=== PATIENT | female | born 1950 | race Caucasian/White ===

== ENCOUNTER → 2016-12-06 21:39 | Emergency (ER) | payer MEDICARE ==
--- NOTE | 2016-12-06 22:34 | RAD ---
INDICATION: Head injury. COMPARISON: Comparison is made with a prior CT of the brain from September 20, 2014. TECHNIQUE: Contiguous axial sections of the brain were obtained from the skull base to the vertex without contrast. FINDINGS: The ventricles, cisterns and sulci are enlarged consistent with diffuse atrophy. There are small areas of decreased density in the subcortical and periventricular white matter suggestive of mild chronic small vessel ischemic changes. There is no evidence for hemorrhage. There is soft tissue swelling and hematoma in the scalp adjacent to the posterior right parietal bone measuring 4.6 x 2.0 cm in size. There is also a small amount of air within the soft tissues consistent with a laceration type injury. No fracture is seen. The visual is portion of the paranasal sinuses and mastoid air cells appear clear. IMPRESSION: 1. NO EVIDENCE FOR ACUTE INTRACRANIAL ABNORMALITY. 2. SOFT TISSUE SWELLING AND HEMATOMA IN THE SCALP ADJACENT TO THE POSTERIOR RIGHT PARIETAL BONE.
--- NOTE | 2016-12-06 22:40 | RAD ---
INDICATION: Fall, head injury. COMPARISON: There are no prior studies available for comparison. TECHNIQUE: Contiguous axial sections were obtained from the skull base through the C7 vertebra. Images were reconstructed in the sagittal and coronal planes. FINDINGS: There is straightening of the cervical spine with loss of the normal cervical lordosis. No prevertebral soft tissue swelling or fracture is seen. At the C2-C3 level there is mild posterior uncinate process spurring and moderate hypertrophic changes within the facet joints. No spinal canal narrowing is present. There is mild neural foraminal narrowing on the right side. At the C3-C4 level there is mild posterior uncinate process spurring and moderate hypertrophic changes within the facet joint on the left side. No spinal canal narrowing is present. There is mild neural foraminal narrowing on the left side. At the C4-C5 level there is mild posterior uncinate process spurring and mild hypertrophic changes within the facet joints. No significant spinal canal narrowing is present. There is mild to moderate bilateral neural foraminal narrowing. At the C5-C6 level there is mild to moderate posterior uncinate process spurring. This causes mild spinal canal narrowing. There is moderate bilateral neural foraminal narrowing. At the C6-C7 level there is mild to moderate posterior uncinate process spurring. This causes mild spinal canal narrowing. There is moderate bilateral neural foraminal narrowing. Images through the lung apices demonstrate a curvilinear nodular density at the right lung apex. Recommend a follow-up chest x-ray for further evaluation. IMPRESSION: 1. NO EVIDENCE FOR FRACTURE OR SUBLUXATION. 2. MODERATE CERVICAL SPONDYLOSIS. 3. ABNORMAL DENSITY AT THE RIGHT LUNG APEX. RECOMMEND A FOLLOW-UP PA AND LATERAL CHEST FILMS FOR FURTHER EVALUATION.
[2016-12-06 22:52] LABS: Hematocrit 35 % (35-47); Hemoglobin 10.7 g/dl (12.0-16.0); Mean Corpuscular HGB Conc 31 g/dl (31-36); Mean Corpuscular Hemoglobin 25 pg (27-31); Mean Corpuscular Volume 82 fL (80-97); Mean Platelet Volume 7 um3 (7.4-10.4); Red Blood Count 4.29 10^6/ul (4.0-5.4); Red Cell Distribution Width 17 % (10.5-15); White Blood Count 5.9 10^3/ul (3.5-10.8)
[2016-12-06 23:08] LABS: BUN/Creatinine Ratio 10.8 (8-20); Calcium 9.4 mg/dL (8.6-10.3); EGFR African American 117.3 (>60); EGFR Non-African American 91.2 (>60); Globulin 3.6 g/dL (2-4); Potassium 3.1 mmol/L (3.5-5.0); Total Bilirubin 0.2 mg/dL (0.2-1.0); Total Protein 7.6 g/dL (6.4-8.9)
[2016-12-06 23:12] VITALS: BP 118/86
--- NOTE | 2016-12-07 03:03 | ED ---
Joseph Meyer Alok, scribed for Reuben Silva MD on 12/06/16 at 2243 . Adult Trauma - HPI Summary HPI Summary: 66F presents to the ED with occipital head pain. Pt states that she fell down the steps while leaving her home. Pt describes episode as [id number] event falling down a total of 3 steps and states she was able to get up on her own. Pt presents with abrasion of the left foot. Pt denies LOC or neck pain. Pt denies hip pain. Pt denies CP or SOB. Pt denies fever or chills. Pt denies back pain, flank pain, or abd pain. Pt denies anti-coagulants. Pt denies ETOH use before fall though admitted to nursing staff of ETOH use today. Nursing staff notes confusion in pt. - History of Current Complaint Chief Complaint: EDHeadInjury Stated Complaint: FALL/HEAD INJURY Time Seen by Provider: 12/06/16 22:05 Hx Obtained From: Patient ?: No Mechanism of Injury: Fall Loss of Consciousness: no loss of consciousness Onset/Duration: Started Hours Ago, Traumatic, Still Present Onset of Pain: Immediate Onset Severity: Moderate Current Severity: Moderate Pain Intensity: 0 Pain Scale Used: 0-10 Numeric Location: Head Aggravating Factor(s): Nothing Alleviating Factor(s): Nothing Associated Signs & Symptoms: Positive: Other: - abrasion left foot. Negative: SOB, Chest Pain, Fever, Loss of Consciousness - Additional Pertinent History Primary Care Physician: [id number] - Allergy/Home Medications Allergies/Adverse Reactions: Allergies Allergy/AdvReac Type Severity Reaction Status Date / Time No Known Allergies Allergy Verified 08/21/16 13:05 PMH/Surg Hx/FS Hx/Imm Hx Endocrine/Hematology History: Denies: Hx Anticoagulant Therapy, Hx Diabetes, Hx Systemic Lupus Erythematosus Cardiovascular History: Denies: Hx Congestive Heart Failure, Hx Hypertension, Hx Pacemaker/ICD GI History: Reports: Hx Gastroesophageal Reflux Disease, Other GI Disorders - esophagitis History: Denies: Hx Dialysis, Hx Renal Disease Musculoskeletal History: Denies: Hx Rheumatoid Arthritis, Hx Osteoporosis Sensory History: Denies: Hx Hearing Aid Neurological History: Reports: Hx Dementia Psychiatric History: Denies: Hx Panic Disorder - Cancer History Hx Chemotherapy: No Hx Radiation Therapy: No - Surgical History Surgery Procedure, Year, and Place: APPENDIX Infectious Disease History: No Infectious Disease History: Denies: Traveled Outside the [place] in Last 30 Days - Family History Known Family History: Positive: Hypertension Negative: Cardiac Disease - Social History Occupation: Retired Alcohol Use: unable to say how many drinks tonight 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 No evidence of other trauma noted besides head. The skin is warm and dry and skin color reflects adequate perfusion. Good skin turgor. HEENT: No delaney parra or raccoon eyes. Hematoma right occipital area with some bleeding. The pupils are equal and reactive. The conjunctivae are clear and without drainage. Nares are patent and without drainage. Mouth reveals moist mucous membranes and the throat is without erythema and exudate. Neck is supple with full range of motion and non-tender. There are no carotid bruits. There is no neck vein distension. Respiratory: Chest is non-tender. Lungs are clear to auscultation and breath sounds are symmetrical and equal. Cardiovascular: Hear is regular rate and rhythm. There is no murmur or rub auscultated. There is no peripheral edema and pulses are symmetrical and equal. Abdomen: The abdomen is soft and non-tender. There are normal bowel sounds heard in all four quadrants and there is no organomegaly palpated. Musculoskeletal: There is no back pain noted. Extremities are non-tender with full range of motion. There is good capillary refill. There is no peripheral edema or calf tenderness elicited. Neurological: Patient is alert and oriented to person, place and time. The patient has symmetrical motor strength in all four extremities. Cranial nerves are grossly intact. Deep tendon reflexes are symmetrical and equal in all four extremities. Psychiatric: The patient has an appropriate affect and does not exhibit any anxiety or depression. Triage Information Reviewed: Yes Vital Signs On Initial Exam: Initial Vitals Temp Pulse Resp BP Pulse Ox 97.2 F 83 18 130/84 100 12/06/16 21:49 12/06/16 21:49 12/06/16 21:49 12/06/16 21:49 12/06/16 21:49 Vital Signs Reviewed: Yes - Rachana Coma Scale Coma Scale Total: 15 Diagnostics - Vital Signs Vital Signs Temp Pulse Resp BP Pulse Ox 12/06/16 21:49 97.2 F 83 18 130/84 100 - Laboratory Lab Results: Lab Results 12/06/16 12/06/16 12/06/16 Range/Units 22:43 22:43 22:43 WBC 5.9 (3.5-10.8) 10^3/ul RBC 4.29 (4.0-5.4) 10^6/ul Hgb 10.7 L (12.0-16.0) g/dl Hct 35 (35-47) % MCV 82 (80-97) fL MCH 25 L (27-31) pg MCHC 31 (31-36) g/dl RDW 17 H (10.5-15) % Plt Count 446 (150-450) 10^3/ul MPV 7 L (7.4-10.4) um3 Neut % (Auto) 47.4 (38-83) % Lymph % (Auto) 27.1 (25-47) % Evangeline % (Auto) 4.6 (1-9) % Eos % (Auto) 18.0 H (0-6) % Baso % (Auto) 2.9 H (0-2) % Absolute Neuts (auto) 2.8 (1.5-7.7) 10^3/ul Absolute Lymphs (auto) 1.6 (1.0-4.8) 10^3/ul Absolute Monos (auto) 0.3 (0-0.8) 10^3/ul Absolute Eos (auto) 1.1 H (0-0.6) 10^3/ul Absolute Basos (auto) 0.2 (0-0.2) 10^3/ul Absolute Nucleated RBC 0 10^3/ul Nucleated RBC % 0 INR (Anticoag Therapy) 0.92 (0.89-1.11) Sodium 140 (133-145) mmol/L Potassium 3.1 L (3.5-5.0) mmol/L Chloride 103 (101-111) mmol/L Carbon Dioxide 28 (22-32) mmol/L Anion Gap 9 (2-11) mmol/L BUN 7 (6-24) mg/dL Creatinine 0.65 (0.51-0.95) mg/dL Est GFR ( Amer) 117.3 (>60) Est GFR (Non-Af Amer) 91.2 (>60) BUN/Creatinine Ratio 10.8 (8-20) Glucose 100 (70-100) mg/dL Lactic Acid (0.5-2.0) mmol/L Calcium 9.4 (8.6-10.3) mg/dL Total Bilirubin 0.20 (0.2-1.0) mg/dL AST 25 (13-39) U/L ALT 11 (7-52) U/L Alkaline Phosphatase 101 (34-104) U/L Troponin I 0.00 (<0.04) ng/mL Total Protein 7.6 (6.4-8.9) g/dL Albumin 4.0 (3.2-5.2) g/dL Globulin 3.6 (2-4) g/dL Albumin/Globulin Ratio 1.1 (1-3) Serum Alcohol 286 H (<10) mg/dL 12/06/16 Range/Units 22:43 WBC (3.5-10.8) 10^3/ul RBC (4.0-5.4) 10^6/ul Hgb (12.0-16.0) g/dl Hct (35-47) % MCV (80-97) fL MCH (27-31) pg MCHC (31-36) g/dl RDW (10.5-15) % Plt Count (150-450) 10^3/ul MPV (7.4-10.4) um3 Neut % (Auto) (38-83) % Lymph % (Auto) (25-47) % Evangeline % (Auto) (1-9) % Eos % (Auto) (0-6) % Baso % (Auto) (0-2) % Absolute Neuts (auto) (1.5-7.7) 10^3/ul Absolute Lymphs (auto) (1.0-4.8) 10^3/ul Absolute Monos (auto) (0-0.8) 10^3/ul Absolute Eos (auto) (0-0.6) 10^3/ul Absolute Basos (auto) (0-0.2) 10^3/ul Absolute Nucleated RBC 10^3/ul Nucleated RBC % INR (Anticoag Therapy) (0.89-1.11) Sodium (133-145) mmol/L Potassium (3.5-5.0) mmol/L Chloride (101-111) mmol/L Carbon Dioxide (22-32) mmol/L Anion Gap (2-11) mmol/L BUN (6-24) mg/dL Creatinine (0.51-0.95) mg/dL Est GFR ( Amer) (>60) Est GFR (Non-Af Amer) (>60) BUN/Creatinine Ratio (8-20) Glucose (70-100) mg/dL Lactic Acid 1.5 (0.5-2.0) mmol/L Calcium (8.6-10.3) mg/dL Total Bilirubin (0.2-1.0) mg/dL AST (13-39) U/L ALT (7-52) U/L Alkaline Phosphatase (34-104) U/L Troponin I (<0.04) ng/mL Total Protein (6.4-8.9) g/dL Albumin (3.2-5.2) g/dL Globulin (2-4) g/dL Albumin/Globulin Ratio (1-3) Serum Alcohol (<10) mg/dL Result Diagrams: 12/06/16 22:43 12/06/16 22:43 Lab Statement: Any lab studies that have been ordered have been reviewed, and results considered in the medical decision making process. - CT Brain CT CT Interpretation: Positive (See Comments) - IMPRESSION: 1. NO EVIDENCE FOR ACUTE INTRACRANIAL ABNORMALITY. 2. SOFT TISSUE SWELLING AND HEMATOMA IN THE SCALP ADJACENT TO THE POSTERIOR RIGHT PARIETAL BONE. CT Interpretation Completed By: Radiologist Cervical Spine CT CT Interpretation: Positive (See Comments) - IMPRESSION: 1. NO EVIDENCE FOR FRACTURE OR SUBLUXATION. 2. MODERATE CERVICAL SPONDYLOSIS. 3. ABNORMAL DENSITY AT THE RIGHT LUNG APEX. RECOMMEND A FOLLOW-UP PA AND LATERAL CHEST FILMS FOR FURTHER EVALUATION. CT Interpretation Completed By: Radiologist - EKG 2640 Cardiac Rate: Other Rate - 70 bpm EKG Interpretation: RBBB. Normal axis. No ST elevation. Adult Trauma Course/Dx - Course Course Of Treatment: Pt presented with occupital head pain following fall. Pt is ETOH intoxicated. CT Brain and CT cervical spine done and show no fracture. Pt's daughter has arrived and will take pt home. Will discharge with recommendation to FU with PCP. - Diagnoses Differential Diagnosis/HQI/PQRI: Positive: Contusion(s), Fracture, Hematoma(s), Laceration(s), Other - acute alcoholic intoxication Provider Diagnoses: Head contusion, Abrasion head, Acute alcohol intoxication Discharge - Discharge Plan Condition: Stable Disposition: HOME Patient Education Materials: Head Injury (ED), Alcohol Intoxication (ED) Referrals: Fatimah Vallejo MD [Primary Care Provider] - Additional Instructions: Please apply ice to your head and follow up with your primary care provider. The documentation as recorded by the Joseph burrell Alok accurately reflects the service I personally performed and the decisions made by , Reuben Silva MD.
== END | disposition home or self-care (01) ==
LOC: ED 21:39
DX: S00.93XA Contusion of unspecified part of head, initial encounter (principal); S00.91XA Abrasion of unspecified part of head, initial encounter; F10.129 Alcohol abuse with intoxication, unspecified; R51 Headache; Z87.891 Personal history of nicotine dependence; W10.9XXA Fall (on) (from) unspecified stairs and steps, initial encounter; Y93.9 Activity, unspecified; Y92.9 Unspecified place or not applicable; Y99.9 Unspecified external cause status
CPT/HCPCS: 36415; 70450; 72125; 80053; 80320; 83605; 84484; 85025; 85610; 93005; 99282; G0480

== ENCOUNTER → 2019-01-21 13:37 | Emergency (ER) | payer MEDICARE ==
--- NOTE | 2019-01-21 19:40 | ED ---
Course/Dx - Diagnoses Provider Diagnoses: Alcohol intoxication Discharge - Sign-Out/Discharge Documenting (check all that apply): Patient Departure Patient Received Moderate/Deep Sedation with Procedure: No - Discharge Plan Condition: Stable Disposition: HOME Patient Education Materials: Alcohol Intoxication (ED) Referrals: Fatimah Vallejo MD [Primary Care Provider] - 3 Days (If needed.) Additional Instructions: Stop drinking alcohol. - Billing Disposition and Condition Condition: STABLE Disposition: Home
[2019-01-21 19:45] VITALS: BP 105/72
--- NOTE | 2019-01-22 06:32 | ED ---
Substance Abuse/Use - HPI Summary HPI Summary: Patient is a 68-year-old female who was found by police with a near empty bottle of vodka near her and acting inappropriately and confused. She was brought to the ED by way of EMS for alcohol intoxication. No signs of trauma. Patient ambulating well, however with a staggering gait. Patient denies any drug use and states she just wanted to "relax today." She states she does remember walking around her neighborhood with a bottle of vodka. Patient states she drinks approximately once to twice per week. Patient is cooperative , not acting hostile and is pleasant. Denies any SI/HI. - History Of Current Complaint Chief Complaint: EDSubstanceAbuse Stated Complaint: 2208 PER LAW Time Seen by Provider: 01/21/19 14:19 Hx Obtained From: Patient ?: No Onset/Duration of Drug/ETOH Abuse: Hours Ingestion History: Amount Ingested - unknown Overdose Characteristics: Oral Timing Of Abuse: Intermittent Severity Initially: Moderate Severity Currently: Moderate Aggravating Factor(s): Nothing Alleviating Factor(s): Nothing Associated Signs And Symptoms: Negative - Risk Factor(s) Completed Suicide Risk Factors: Negative - Allergies/Home Medications Allergies/Adverse Reactions: Allergies Allergy/AdvReac Type Severity Reaction Status Date / Time No Known Allergies Allergy Verified 05/16/17 10:29 Home Medications: Home Medications NK [No Home Medications Reported] 01/21/19 [History Confirmed 01/21/19] PMH/Surg Hx/FS Hx/Imm Hx Previously Healthy: Yes Endocrine/Hematology History: Denies: Hx Anticoagulant Therapy, Hx Diabetes, Hx Systemic Lupus Erythematosus Cardiovascular History: Denies: Hx Congestive Heart Failure, Hx Hypertension, Hx Pacemaker/ICD GI History: Reports: Hx Gastroesophageal Reflux Disease, Other GI Disorders - esophagitis History: Denies: Hx Dialysis, Hx Renal Disease Musculoskeletal History: Denies: Hx Rheumatoid Arthritis, Hx Osteoporosis Sensory History: Denies: Hx Hearing Aid Neurological History: Reports: Hx Dementia Psychiatric History: Denies: Hx Panic Disorder - Cancer History Hx Chemotherapy: No Hx Radiation Therapy: No - Surgical History Surgery Procedure, Year, and Place: APPENDIX - Immunization History Hx Pertussis Vaccination: No Immunizations Up to Date: Yes Infectious Disease History: No Infectious Disease History: Denies: Traveled Outside the [place] in Last 30 Days - Family History Known Family History: Positive: Hypertension Negative: Cardiac Disease - Social History Occupation: Unemployed Lives: Alone Alcohol Use: None Alcohol Amount: Patient is an alcoholic Hx Substance Use: No Substance Use Type: Reports: None Hx Tobacco Use: Yes Smoking Status (MU): Former Smoker Review of Systems Constitutional: Negative Negative: Fever, Chills, Fatigue, Skin Diaphoresis Negative: Palpitations, Chest Pain Negative: Shortness Of Breath, Cough Genitourinary: Negative Positive: no symptoms reported, see HPI Negative: Arthralgia, Myalgia Positive: Slurred Speech All Other Systems Reviewed And Are Negative: Yes Physical Exam Triage Information Reviewed: Yes Vital Signs On Initial Exam: Initial Vitals Temp Pulse Resp BP Pulse Ox 98.6 F 96 16 98/79 97 01/21/19 13:41 01/21/19 13:41 01/21/19 13:41 01/21/19 13:41 01/21/19 13:41 Vital Signs Reviewed: Yes Appearance: Positive: Well-Appearing, No Pain Distress Skin: Positive: Warm, Skin Color Reflects Adequate Perfusion Head/Face: Positive: Normal Head/Face Inspection Eyes: Positive: EOMI, Conjunctiva Clear Cardiovascular: Positive: RRR, Pulses are Symmetrical in both Upper and Lower Extremities Musculoskeletal: Positive: Strength/ROM Intact Neurological: Positive: Sensory/Motor Intact, Alert, Oriented to Person Place, Time, Speech Normal Psychiatric: Positive: Affect/Mood Appropriate Diagnostics - Vital Signs Vital Signs Temp Pulse Resp BP Pulse Ox 01/21/19 19:44 98 F 85 14 105/72 98 01/21/19 19:02 98.2 F 101 16 100/77 99 01/21/19 17:20 98.3 F 89 16 100/65 98 01/21/19 13:41 98.6 F 96 16 98/79 97 - Laboratory Lab Results: Lab Results 01/21/19 Range/Units 14:28 Serum Alcohol 276 H (<10) mg/dL Lab Statement: Any lab studies that have been ordered have been reviewed, and results considered in the medical decision making process. Course/Dx - Course Course Of Treatment: This patient is evaluated for alcohol intoxication. Patient is acting intoxicated, however there are no signs of trauma, no obvious drug use, patient is ambulating however with unsteady gait. Alcohol 276. As patient is otherwise stable at this time, we will sober her up and she will be ready for discharge when clinically sober. She is signed out to Kali Reveles NP pending sobriety. - Diagnoses Provider Diagnoses: Alcohol intoxication Discharge - Sign-Out/Discharge Documenting (check all that apply): Patient Departure Patient Received Moderate/Deep Sedation with Procedure: No - Discharge Plan Condition: Stable Disposition: HOME Patient Education Materials: Alcohol Intoxication (ED) Referrals: Fatimah Vallejo MD [Primary Care Provider] - 3 Days (If needed.) Additional Instructions: Stop drinking alcohol. - Billing Disposition and Condition Condition: STABLE Disposition: Home
== END | disposition home or self-care (01) ==
LOC: ED 13:37
DX: F10.929 Alcohol use, unspecified with intoxication, unspecified (principal); K21.0 Gastro-esophageal reflux disease with esophagitis; Z87.891 Personal history of nicotine dependence
CPT/HCPCS: 36415; 80320; 99283; G0480